=== PATIENT | female | born 1995 | race Caucasian/White ===

== ENCOUNTER 2022-01-30 08:00 | Emergency (ER) | payer MEDICAID ==
[~2022-01-30] VITALS: Ht 160 cm; Wt 79.4 kg
--- NOTE | 2022-01-30 08:11 | NUR ---
PT IS IN ROOM #4B. DR MINER EVALUATED THE PT.
[2022-01-30] MEDS ORDERED: LIDOCAINE VISCUS 2% 15 ML UDC ONE (08:14)
[2022-01-30] MEDS ORDERED: MAG HYDROX/AL HYDROX/SIMETH 30 ML LIQUID UDC ONE (08:14)
[2022-01-30] MEDS ORDERED: MAG HYDROX/AL HYDROX/SIMETH 30 ML LIQUID UDC PO ONE (08:15)
[2022-01-30] MEDS ORDERED: VALACYCLOVIR (08:19)
[2022-01-30] MEDS ORDERED: ATIVAN (08:19)
[2022-01-30] MEDS ORDERED: CHARCOAL ACTIVATED (WITHOUT SORBITOL) 50 G/240 ML BOTTLE ONE (08:29)
[2022-01-30] MEDS ORDERED: LIDOCAINE VISCUS 2% 15 ML UDC MM ONE (08:30)
[2022-01-30] MEDS ORDERED: CHARCOAL ACTIVATED (WITHOUT SORBITOL) 50 G/240 ML BOTTLE PO ONE (08:30)
[2022-01-30 09:04] LABS: HEMATOCRIT 40.6 % (31.2-41.9); MEAN CORPUSCULAR HEMOGLOBIN 28.8 uug (24.7-32.8); PLATELET COUNT (AUTO) 293 K/uL (179-408)
[2022-01-30 09:09] LABS: *URINE HCG, QUAL NEG (NEGATIVE)
[2022-01-30 09:10] LABS: CREATININE 0.9 mg/dL (0.6-1.3); POTASSIUM 3.9 mmol/L (3.5-5.1)
[2022-01-30 09:16] LABS: BILIRUBIN,TOTAL 0.4 mg/dL (0.2-1.0); TOTAL PROTEIN, SERUM 7.7 g/dL (6.4-8.2)
--- NOTE | 2022-01-30 09:45 | NUR ---
Patient is resting comfortably in bed talking on the phone, NAD noted, continue monitoring.
[2022-01-30 11:39] VITALS: BP 109/66
--- NOTE | 2022-01-30 11:39 | NUR ---
Patient discharged to home in stable condition. Written and verbal after care instructions given. Patient verbalizes understanding of instructions. Stressed follow up or return to ER for worsening s/s.
== END 2022-01-30 11:44 | disposition home or self-care (01) ==
LOC: ER 08:00
DX: R10.13 Epigastric pain (principal); R11.0 Nausea; E73.9 Lactose intolerance, unspecified; F41.9 Anxiety disorder, unspecified; Z88.5 Allergy status to narcotic agent; R94.31 Abnormal electrocardiogram [ECG] [EKG]
CPT/HCPCS: 36415; 83690; 84703; 85025; 93005; A4663